=== PATIENT | male | born 1945 | race Hispanic/Latino ===

== ENCOUNTER → 2018-08-24 | Outpatient (CLI) | payer MEDICARE ==
--- NOTE | 2018-08-24 09:48 | Diagnostic Imaging Report ---
EXAM: Lumbar spine radiographs - 5 views; sacrum radiographs - 2 views. INDICATION: Lower back pain, sciatica. COMPARISON: None FINDINGS: BONES: There is grade 1 anterolisthesis of L4 on L5. No acute displaced fractures. Vertebral body heights are preserved. DISCS: Severe degenerative disc changes at L5-S1 and moderate degenerative disc changes at L4-L5. JOINTS: Moderate facet degenerative changes, most pronounced at L4-L5 and L5-S1. SOFT TISSUES: Atherosclerotic vascular calcifications. IMPRESSION: No acute radiographic abnormality. Moderate severe degenerative disc and facet degenerative changes of the lower lumbar spine. Signed by: Dr. Maddy Hassan MD on 08/24/2018 9:45 AM
== END ==
LOC: RAD 08:06
PROVIDERS: ATTEND Internal Medicine
DX: M51.27 Other intervertebral disc displacement, lumbosacral region (principal)
CPT/HCPCS: 72110; 72220